=== PATIENT | female | born 1955 | race Caucasian/White ===

== ENCOUNTER → 2018-05-17 | Outpatient (CLI) | payer OTHER ==
[~2018-05-17] MED LIST: ALEN70TA43 PO; ASP325 PO; CALC600T72 PO; CHOL200021 PO; COLE3.756 PO; ESZ2 PO; FISH1CAP15 PO; IBAN2.5T2 PO; LEVO75TA68 PO; LEVO88TA42 PO; ZOLP-350 PO; [UNRECOGNIZED DRUG - OTHER] PO
--- NOTE | 2018-05-17 14:35 | RADIOLOGY IMAGING REPORT ---
FACILITY: [facility] PATIENT NAME: Solomon Botelol : 1955 MR: [id number] V: [id number] EXAM DATE: ORDERING PHYSICIAN: STEPHAN PEÑA TECHNOLOGIST: Location: [facility] [place] Patient: Solomon Botello : 1955 Visit/Account:[id number] Date of Sevice: 05/17/2018 DEXA Scan Clinical history: Osteopenia. Comparison: DEXA scan from 11/24/2014. LUMBAR SPINE: The bone mineral density (BMD) measured from L1-L4 correlates with a Z-score 0.6 and a T-score of -1 .1 which is osteopenia as defined by the World Health Organization. The corresponding risk of fractu re in the lumbar spine is 2-3 times compared with a young adult reference population. This value has increased by 5.2 % since the prior study. More than 5% change is considered significant. HIP: Bone mineral density (BMD) measured in the Left femoral neck region correlates with a Z-score 0.6 and a T-score of -0.9 which is Normal as defined by the World Health Organization. The corresponding risk of fracture in the hip is 1-2 times compared with a young adult reference population. The total hip value has decreased by 1.7 % since the prior study. More than 5% change is considered significan t. Bone mineral density (BMD) measured in the Femoral Neck region measures 0.918 g/cm2. IMPRESSION: 1. Lumbar spine: Osteopenia. There has been significant increase in the bone mineral density since the previous exam. 2. Left Hip: Normal. There has been No significant change in the bone mineral density of the total hip since the previous exam. 3. Femoral Neck: Bone Mineral Density is 0.918 g/cm2 The next DEXA scan of this patient should include the following sites: L1-L4 and the left hip. FRAX? WHO Fracture Risk Assessment Tool link: <http://www.shef.ac.uk/FRAX/tool.jsp?locationValue=9> PLEASE NOTE: 1) The World Health Organization defines low BMD as follows: T-score Normal > -1 Osteopenia < -1 and > -2.5 Osteoporosis < -2.5 without fractures Established osteoporosis < -2.5 with fractures 2) In general, you may wish to consider: Diagnosis Treatment Follow-up DEXA Normal BMD Prevention 2-3 years Osteopenia Prevention/therapy 1-2 years Osteoporosis Therapy Yearly 3) Fracture risk estimated from the T-score is more accurate for vertebral fractures (often spontane ous) than for hip fractures. Report Dictated By: Dieudonne Osman MD at 05/17/2018 2:29 PM Report E-Signed By: Dieudonne Osman MD at 05/17/2018 2:31 PM CHRISTIEN:JASPREET
== END ==
LOC: RAD 02:17
PROVIDERS: ATTEND Nurse Practitioner Family
DX: M85.80 Other specified disorders of bone density and structure, unspecified site (principal)
CPT/HCPCS: 77080